=== PATIENT | male | born 1975 | race African-American/Black ===

== ENCOUNTER 2019-10-07 17:19 | Emergency (ER) | payer OTHER, BC ==
[2019-10-07 17:30] VITALS: BP 149/86
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
== END 2019-10-07 18:21 | disposition home or self-care (01) ==
LOC: ER 17:19
DX: M54.6 Pain in thoracic spine (principal); V87.7XXA Person injured in collision between other specified motor vehicles (traffic), initial encounter
CPT/HCPCS: 99283